=== PATIENT | female | born 1985 | race Asian ===

== ENCOUNTER 2020-01-02 22:05 | Emergency (ER) | payer SELFPAY ==
[~2020-01-02] VITALS: Ht 154.9 cm; Wt 58.1 kg
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
--- NOTE | 2020-01-02 22:43 | NUR ---
LILI SMITH PAC AT THE BED SIDE
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
--- NOTE | 2020-01-02 23:01 | NUR ---
Patient discharged to home in stable condition. Written and verbal after care instructions given. Patient verbalizes understanding of instruction.
[2020-01-02 23:02] VITALS: BP 136/89
== END 2020-01-02 23:04 | disposition home or self-care (01) ==
LOC: ER 22:07
DX: S61.211A Laceration without foreign body of left index finger without damage to nail, initial encounter (principal); Z98.890 Other specified postprocedural states; W26.0XXA Contact with knife, initial encounter; Y93.89 Activity, other specified; Y92.89 Other specified places as the place of occurrence of the external cause; Y99.8 Other external cause status
CPT/HCPCS: 12001; 99282; A6403